=== PATIENT | male | born 1960 | race Caucasian/White ===

== ENCOUNTER 2019-05-04 09:35 | Emergency (ER) | payer OTHER ==
--- NOTE | 2019-05-04 12:01 | RAD ---
XR Chest Pa Lat STANDARD HISTORY: Cough COMPARISON: None FINDINGS: The heart size is normal. The lungs are well expanded without focal areas of consolidation, pneumothorax or pleural effusions. IMPRESSION: No radiographic evidence of acute cardiopulmonary process.
[2019-05-04] MEDS ORDERED: Azithromycin 250 MG TAB ONE (12:39)
[2019-05-04] MEDS ORDERED: Dexamethasone 10 MG/ML VIAL ONE (12:39)
== END 2019-05-04 12:48 | disposition home or self-care (01) ==
LOC: ERS 09:35
DX: J44.1 Chronic obstructive pulmonary disease with (acute) exacerbation (principal); F31.9 Bipolar disorder, unspecified; F20.9 Schizophrenia, unspecified; Z79.899 Other long term (current) drug therapy
CPT/HCPCS: 71046; 87804; 94640; 96372; J1100; J7620